=== PATIENT | female | born 1950 | race Caucasian/White ===

== ENCOUNTER 2019-10-14 09:56 | Emergency (ER) | payer MEDICARE, BC ==
--- NOTE | 2019-10-14 10:38 | ERPHSYRPT ---
- History of Present Illness Time Seen by Provider: 10/14/19 10:35 Source: patient Exam Limitations: no limitations Patient Subjective Stated Complaint: states has had sore throat for three days with slight cough. Triage Nursing Assessment: ambulated to room per self. skin w/d, color normal. resp nonlabored. Physician History: The patient is a 68-year-old female who presents with a chief complaint of a sore throat. Onset reportedly was this past 2027. In addition to her sore throat she also endorsed having rhinorrhea and nasal congestion as well as a postnasal drip. She also endorsed having a dry cough but feels her cough is triggered from her postnasal drip. She denies fevers, chills, shortness of breath, chest pain, otalgia, myalgias and headache. She called her primary care provider's office, Dr. Patton, and was told to come to the emergency department for evaluation out of concern for the "virus" it is presumed they were worried about COVID-19. 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 Denies any known recent sick contacts and denies any recent travel. Associated Symptoms: cough, No nausea, No vomiting, No abdominal pain, No shortness of breath, No chest pain, No fever, No headaches, No malaise, No rash Allergies/Adverse Reactions: amoxicillin [Amoxicillin] Adverse Reaction (Intermediate, Verified 10/14/19 10: 27) CHEST PAIN indomethacin [From Indocin] Adverse Reaction (Verified 10/14/19 10:27) indomethacin sodium [From Indocin] Adverse Reaction (Verified 10/14/19 10:27) Home Medications: ARIPiprazole [Aripiprazole] 2 mg PO DAILY 10/14/19 [History] Atorvastatin Calcium [Lipitor] 20 mg PO DAILY 10/14/19 [History] Citalopram Hydrobromide 20 mg* [ceLEXa 20 MG] 20 mg PO DAILY 10/14/19 [ History] Donepezil HCl 10 mg [Aricept 10 MG] 10 mg PO HS 10/14/19 [History] Levothyroxine Sodium 75 Mcg [Synthroid 75 Mcg] 75 mcg PO DAILY 10/14/19 [ History] Paroxetine HCl [Paroxetine ER] 25 mg PO DAILY 10/14/19 [History] estradioL [Divigel] 1 each TD UD 10/14/19 [History] hydrOXYzine HCL [Hydroxyzine HCl] 10 mg PO UD 10/14/19 [History] Hx Tetanus, Diphtheria Vaccination/Date Given: No Hx Influenza Vaccination/Date Given: No Hx Pneumococcal Vaccination/Date Given: No - Review of Systems Constitutional: No Fever, No Chills Eyes: No Symptoms Ears, Nose, & Throat: Nose Congestion, Sinus Drainage, Painful Swallowing, No Ear Pain Respiratory: Cough, No Dyspnea, No Dyspnea on Exertion (LITTLE), No Stridor, No Wheezing Cardiac: No Chest Pain, No Edema, No Syncope Abdominal/Gastrointestinal: No Abdominal Pain, No Nausea, No Vomiting Genitourinary Symptoms: No Dysuria, No Frequency, No Hematuria Musculoskeletal: No Symptoms Skin: No Symptoms Neurological: No Symptoms Psychological: No Symptoms Endocrine: No Symptoms Hematologic/Lymphatic: No Symptoms Immunological/Allergic: No Symptoms All Other Systems: Reviewed and Negative - Past Medical History Pertinent Past Medical History: Yes Cardiac History: High Cholesterol, Hypertension Endocrine Medical History: Hypothyroidism GI Medical History: GERD Psycho-Social History: Depression Female Reproductive Disorders: Endometriosis - Past Surgical History Past Surgical History: Yes Gastrointestinal: Appendectomy Musculoskeletal: Orthopedic Surgery Female Surgical History: Hysterectomy - Social History Smoking Status: Never smoker Exposure to second hand smoke: No Drug Use: none Patient Lives Alone: No - Female History Hx Now: No - Nursing Vital Signs Nursing Vital Signs: Initial Vital Signs Temperature 97.7 F 10/14/19 10:18 Pulse Rate 84 10/14/19 10:18 Respiratory Rate 16 10/14/19 10:18 Blood Pressure 122/64 10/14/19 10:18 O2 Sat by Pulse Oximetry 100 10/14/19 10:18 Pain Scale Pain Intensity 0 - Physical Exam General Appearance: no apparent distress, alert Eye Exam: PERRL/EOMI, eyes nml inspection Ears, Nose, Throat Exam: normal ENT inspection, moist mucous membranes, No pharynx normal, No dry mucous membranes, No TM abnormal (L), No pharyngeal erythema, No tonsillar exudate Neck Exam: normal inspection, non-tender, full range of motion, No supple, No meningismus, No mass Respiratory Exam: normal breath sounds, airway intact Cardiovascular Exam: regular rate/rhythm, No murmur, No friction rub, No gallop , No tachycardia Gastrointestinal/Abdomen Exam: soft Pelvic Exam: not done Rectal Exam: deferred Back Exam: normal inspection Extremity Exam: normal inspection Neurologic Exam: alert, oriented x 3, cooperative, normal mood/affect Skin Exam: normal color, warm, dry, No rash, No petechiae SpO2 Interpretation: normal SpO2: 100 O2 Delivery: Room Air - Radiology Exams Chest X-ray Interpretation: Reviewed by me, Other (Nonacute chest hyperinflated with incidental hiatal hernia and L1 compression fracture of uncertain chronicity.) Ordered Tests: Active Orders 24 hr Category Date Time Status CHEST 2 VIEWS (PA AND LAT) Stat Exams 10/14/19 10:37 Completed Lab/Rad Data: Laboratory Results 10/14/19 Range/Units 10:45 Influenza Type A Ag NEGATIVE (NEGATIVE) Influenza Type B Ag NEGATIVE (NEGATIVE) RSV (PCR) NEGATIVE (Negative) - Progress Progress: unchanged Progress Note: 10/14/19 14:58 Nontoxic in appearance. The patient's chest x-ray is reviewed showed no evidence of pneumonia and was ordered to rule out evidence of pneumonia and/or pleural effusion and or mass. Tested negative for influenza for her flu-like symptoms. I currently have a low suspicion for serious bacterial illness at this time and her symptoms seem to be consistent with a viral upper respiratory tract infection. The patient screamed out for work over 19 for the [facility] of [facility] guidelines dated October 09 2019. She was also notified of the L1 compression fracture seen on her x-ray today and stated that she fell 4 years ago and injured her back and already had imaging for this injury and is aware of this injury and it is not new. Patient was provided reassurance and was thankful for the work-up that was done here today. She was discharged with prescriptions for symptomatic relief and instructed to follow- up with her primary care provider on an as needed basis or to return to the emergency department if her symptoms were to become worse. She agreed with and verbally understood the discharge plan. 10/14/19 15:00 Counseled pt/family regarding: diagnosis, need for follow-up, rad results - Departure Departure Disposition: Home, In-patient Admission Clinical Impression: Hiatal hernia, Compression fracture of L1 lumbar vertebra, Viral upper respiratory illness Condition: Stable Critical Care Time: No Referrals: CORINE PATTON [Primary Care Provider] - Instructions: Viral Upper Respiratory Infection, Adult (DC) Additional Instructions: Please take all/acetaminophen and/or ibuprofen as needed for any fevers or pain. You can purchase these medications [id number]. Take these medications as instructed on the medication bottle. Prescriptions: Benzonatate [Tessalon [place]] 100 mg PO [id number] PRN #30 capsule PRN Reason: Cough Oxymetazoline HCl Nasal [Afrin Nasal [place]] 15 ml NS BID 3 Days #1 bottle Sodium Chloride [Saline Nasal [place]] 30 ml NS BID PRN #1 spray
--- NOTE | 2019-10-14 11:18 | XRAY ---
Indication: Cough, sore throat, and sinus drainage. Comparison: None PA/lateral chest hyperinflated and clear. Heart is not enlarged. Moderate sized hiatal hernia. Bony thorax intact with mild osteopenia, mild degenerative changes, mild double curvature scoliosis, and L1 compression fracture of uncertain chronicity. Impression: Nonacute chest hyperinflated with incidental hiatal hernia and L1 compression fracture of uncertain chronicity.
[2019-10-14 11:24] LABS: INFLUENZA A NEGATIVE (NEGATIVE); INFLUENZA B NEGATIVE (NEGATIVE); RESPIRATORY SYNCTIAL VIRUS NEGATIVE (Negative)
[2019-10-14 11:46] VITALS: BP 118/60; PULSE 78
[2019-10-14 11:47] VITALS: O2SAT 100
== END 2019-10-14 11:56 | disposition home or self-care (01) ==
LOC: ED 09:56
DX: K44.9 Diaphragmatic hernia without obstruction or gangrene (principal); S32.009A Unspecified fracture of unspecified lumbar vertebra, initial encounter for closed fracture; J06.9 Acute upper respiratory infection, unspecified
CPT/HCPCS: 71046; 87631; 99284